=== PATIENT | female | born 1990 | race Hispanic/Latino ===

== ENCOUNTER 2020-06-20 17:29 | Emergency (ER) | payer OTHER ==
[~2020-06-20] VITALS: Ht 157.5 cm; Wt 59.0 kg
[~2020-06-20 17:29] MED LIST: FLAGYL500 MG PO; KEFLEX500 MG PO; METROGEL VAG0.75 % VA; NO HOME MEDS; ONDANSETRON ODT8 MG PO; PRENATA3 OR; SPRINTEC 2828 DAY PO; TAM75CAP OR
[2020-06-20 19:09] LABS: IMMATURE GRANULOCYTES 0.2 % (0.0-5.0); MEAN CORPUSCULAR HGB CONC 33.7 g/dL CAL (32.0-36.0); NEUT# 7.27 thou/uL (2.00-7.15); RED BLOOD COUNT 4.53 mill/uL (4.20-5.60); RED CELL DISTRI WIDTH 13.3 % (11.5-15.5)
[2020-06-20 19:12] LABS: HEMATOCRIT 40.3 % (37.0-47.0); HEMOGLOBIN 13.6 g/dl (12.0-16.0)
[2020-06-20 19:29] LABS: ALBUMIN 4.9 g/dL (3.2-5.0); ALKALINE PHOSPHATASE 54 u/l (38-126); ANION GAP 14 (6-22 (CALC)); BILIRUBIN, TOTAL 1.1 mg/dL (0.0-1.4); BUN 8 mg/dL (7-17); BUN/CREATININE RATIO 13 (12-20 (CALC)); CARBON DIOXIDE 25 mmol/l (22-30); CHLORIDE 100 mmol/l (95-108); CREATININE 0.6 mg/dL (0.5-1.0); GFR > 60 ML/MIN (>=60 (CALC)); GFR FOR AFR.AMER. > 60 ML/MIN (>=60 (CALC)); LIPASE 44 u/l (23-300); POTASSIUM 3.8 mmol/l (3.5-5.1); SGOT/AST 27 u/l (14-36); SODIUM 136 mmol/l (137-146); TOTAL PROTEIN 8.3 g/dL (6.3-8.2)
[2020-06-20] MEDS ORDERED: PHENERGAN25 MG/TAB PO (20:05)
[2020-06-20 20:20] VITALS: BP 128/83
== END 2020-06-20 20:20 | disposition home or self-care (01) ==
LOC: ED 17:29
PROVIDERS: Family Medicine
DX: O21.9 Vomiting of pregnancy, unspecified (principal); Z3A.00 Weeks of gestation of pregnancy not specified; Z20.822 Contact with and (suspected) exposure to COVID-19

== ENCOUNTER 2020-07-10 17:12 | Emergency (ER) | payer OTHER ==
[~2020-07-10] VITALS: Ht 157.5 cm; Wt 60.0 kg
[~2020-07-10 17:12] MED LIST changes: +PHENERGAN25 MG/TAB PO
[2020-07-10 18:40] LABS: HEMATOCRIT 34.2 % (37.0-47.0); HEMOGLOBIN 11.8 g/dl (12.0-16.0); IMMATURE GRANULOCYTES 0.3 % (0.0-5.0); MEAN CELL VOLUME 87.7 fL CALC (80.0-100.0); MEAN CORPUSCULAR HGB 30.3 pG CALC (26.0-32.0); MEAN CORPUSCULAR HGB CONC 34.5 g/dL CAL (32.0-36.0); NEUT# 8.93 thou/uL (2.00-7.15); RED BLOOD COUNT 3.9 mill/uL (4.20-5.60); RED CELL DISTRI WIDTH 13.1 % (11.5-15.5)
[2020-07-10 18:41] LABS: URINE BILIRUBIN - DIPSTICK NEGATIVE (NEGATIVE); URINE BLOOD DIPSTICK NEGATIVE (NEGATIVE); URINE COLOR YELLOW; URINE GLUCOSE - DIPSTICK NEGATIVE (NEGATIVE); URINE KETONE NEGATIVE (NEGATIVE); URINE LEUK ESTERASE NEGATIVE (NEGATIVE); URINE NITRITE - DIPSTICK NEGATIVE (Negative); URINE PH 6.5 (4.5-8.0); URINE PROTEIN - DIPSTICK NEGATIVE (NEG-TRACE); URINE SPECIFIC GRAVITY 1.025; URINE UROBILINOGEN - DIPSTICK 0.2 E.U./dL (0.2)
[2020-07-10 18:58] LABS: ALBUMIN 4.3 g/dL (3.2-5.0); ALKALINE PHOSPHATASE 49 u/l (38-126); ANION GAP 13 (6-22 (CALC)); BUN 8 mg/dL (7-17); BUN/CREATININE RATIO 15 (12-20 (CALC)); CARBON DIOXIDE 26 mmol/l (22-30); CHLORIDE 100 mmol/l (95-108); CREATININE 0.5 mg/dL (0.5-1.0); GFR > 60 ML/MIN (>=60 (CALC)); GFR FOR AFR.AMER. > 60 ML/MIN (>=60 (CALC)); LIPASE 54 u/l (23-300); POTASSIUM 3.5 mmol/l (3.5-5.1); SGOT/AST 21 u/l (14-36); SODIUM 135 mmol/l (137-146); TOTAL PROTEIN 7.4 g/dL (6.3-8.2)
[2020-07-10 19:02] LABS: BILIRUBIN, TOTAL 0.4 mg/dL (0.0-1.4)
[2020-07-10 19:39] LABS: BETA-HCG, QUANT(RESULT NUMBER) 138170 mIU/mL
[2020-07-10] MEDS ORDERED: DICLEGIS1 TAB PO ×2 (19:48→19:51)
[2020-07-10] MEDS ORDERED: CLOTRIMAZOLE VA (19:51)
[2020-07-10 20:16] VITALS: BP 128/83
[2020-07-13] MEDS ORDERED: COMPAZINE10 MG PO (17:05)
== END 2020-07-10 20:16 | disposition home or self-care (01) ==
LOC: ED 17:12
PROVIDERS: Family Medicine
DX: O26.899 Other specified pregnancy related conditions, unspecified trimester (principal); R11.2 Nausea with vomiting, unspecified; N89.8 Other specified noninflammatory disorders of vagina; O99.330 Smoking (tobacco) complicating pregnancy, unspecified trimester; F17.200 Nicotine dependence, unspecified, uncomplicated; Z3A.00 Weeks of gestation of pregnancy not specified

== ENCOUNTER 2020-07-12 19:50 | Emergency (ER) | payer OTHER ==
[~2020-07-12] VITALS: Ht 157.5 cm; Wt 59.0 kg
[~2020-07-12 19:50] MED LIST changes: +CLOTRIMAZOLE VA; +DICLEGIS1 TAB PO
[2020-07-12 21:25] LABS: HEMATOCRIT 37.1 % (37.0-47.0); HEMOGLOBIN 12.7 g/dl (12.0-16.0); IMMATURE GRANULOCYTES 0.5 % (0.0-5.0); MEAN CELL VOLUME 86.9 fL CALC (80.0-100.0); MEAN CORPUSCULAR HGB 29.7 pG CALC (26.0-32.0); MEAN CORPUSCULAR HGB CONC 34.2 g/dL CAL (32.0-36.0); NEUT# 16.93 thou/uL (2.00-7.15); RED BLOOD COUNT 4.27 mill/uL (4.20-5.60); RED CELL DISTRI WIDTH 13.1 % (11.5-15.5)
[2020-07-12 21:29] LABS: URINE BLOOD DIPSTICK NEGATIVE (NEGATIVE); URINE COLOR YELLOW; URINE GLUCOSE - DIPSTICK NEGATIVE (NEGATIVE); URINE KETONE >=80 mg/dL (NEGATIVE); URINE LEUK ESTERASE NEGATIVE (NEGATIVE); URINE NITRITE - DIPSTICK NEGATIVE (Negative); URINE PROTEIN - DIPSTICK 30 mg/dL (NEG-TRACE); URINE SPECIFIC GRAVITY >=1.030; URINE UROBILINOGEN - DIPSTICK 0.2 E.U./dL (0.2)
[2020-07-12 21:33] LABS: URINE BILIRUBIN - DIPSTICK NEGATIVE (NEGATIVE)
[2020-07-12 21:38] LABS: ALBUMIN 4.4 g/dL (3.2-5.0); ALKALINE PHOSPHATASE 57 u/l (38-126); AMYLASE 96 u/l (30-110); ANION GAP 15 (6-22 (CALC)); BUN 8 mg/dL (7-17); BUN/CREATININE RATIO 17 (12-20 (CALC)); CARBON DIOXIDE 22 mmol/l (22-30); CHLORIDE 103 mmol/l (95-108); CREATININE 0.5 mg/dL (0.5-1.0); GFR > 60 ML/MIN (>=60 (CALC)); GFR FOR AFR.AMER. > 60 ML/MIN (>=60 (CALC)); LIPASE 60 u/l (23-300); POTASSIUM 3.7 mmol/l (3.5-5.1); SODIUM 136 mmol/l (137-146); TOTAL PROTEIN 7.4 g/dL (6.3-8.2)
[2020-07-12 21:39] LABS: BILIRUBIN, TOTAL 0.6 mg/dL (0.0-1.4); SGOT/AST 37 u/l (14-36)
[2020-07-12 21:41] LABS: URINE RBC 0-2 RBC/hpf (0-5); URINE SQUAMOUS EPITHELIAL CELL MODERATE EPI/hpf (0-FEW)
[2020-07-12 22:08] VITALS: BP 100/56
[2020-07-12] MEDS ORDERED: COMPAZINE10 MG PO (22:20)
[2020-07-13] MEDS ORDERED: COMPAZINE10 MG PO (17:05)
== END 2020-07-12 22:43 | disposition home or self-care (01) ==
LOC: ED 19:50
PROVIDERS: Family Medicine
DX: O21.9 Vomiting of pregnancy, unspecified (principal); T50.906A Underdosing of unspecified drugs, medicaments and biological substances, initial encounter; Z91.128 Patient's intentional underdosing of medication regimen for other reason; Z3A.00 Weeks of gestation of pregnancy not specified

== ENCOUNTER 2020-11-02 10:50 | Emergency (ER) | payer OTHER ==
[~2020-11-02] VITALS: Ht 157.5 cm; Wt 68.0 kg
[~2020-11-02 10:50] MED LIST changes: +COMPAZINE10 MG PO; +DIFLUCAN150 MG PO
[2020-11-02 11:54] VITALS: BP 118/75
[2020-11-02] MEDS ORDERED: CLARITIN10 M2 PO (11:55)
[2020-11-02] MEDS ORDERED: AMOXICILLIN500 MG PO (11:55)
== END 2020-11-02 12:00 | disposition home or self-care (01) ==
LOC: ED 10:50
DX: O99.512 Diseases of the respiratory system complicating pregnancy, second trimester (principal); J02.9 Acute pharyngitis, unspecified; Z3A.24 24 weeks gestation of pregnancy; Z20.822 Contact with and (suspected) exposure to COVID-19

== ENCOUNTER 2021-01-23 21:10 | Emergency (ER) | payer OTHER ==
[~2021-01-23] VITALS: Ht 157.5 cm; Wt 79.0 kg
[~2021-01-23 21:10] MED LIST changes: +AMOXICILLIN500 MG PO; +CLARITIN10 M2 PO
[2021-01-23 22:15] VITALS: BP 112/69
== END 2021-01-24 00:40 | disposition home or self-care (01) ==
LOC: ED 21:10
DX: Z20.822 Contact with and (suspected) exposure to COVID-19 (principal)

== ENCOUNTER 2024-05-08 21:15 | Emergency (ER) | payer OTHER ==
[~2024-05-08] VITALS: Ht 157.5 cm; Wt 60.0 kg
[2024-05-08] VITALS (7 sets, daily range): BP systolic 103–134; BP diastolic 61–85
[2024-05-08] MEDS ORDERED: IBUPROFEN 200 MG/TAB PO ONE (21:40)
[2024-05-08] MEDS ORDERED: Diph, Acellular Pertussis, Tet 0.5 ML/VIAL (Tdap) SDV IM ONE (21:40)
[2024-05-08] MEDS ORDERED: ACETAMINOPHEN 500 MG TAB PO ONE (21:40)
== END 2024-05-08 22:48 | disposition home or self-care (01) | DRG 605 ==
LOC: ED 21:15
DX: S91.331A Puncture wound without foreign body, right foot, initial encounter (principal); W45.0XXA Nail entering through skin, initial encounter; Y92.89 Other specified places as the place of occurrence of the external cause; Y99.0 Civilian activity done for income or pay

== ENCOUNTER 2024-07-01 19:36 | Emergency (ER) | payer OTHER ==
[~2024-07-01] VITALS: Ht 157.5 cm; Wt 59.0 kg
[2024-07-01] MEDS ORDERED: ACETAMINOPHEN 500 MG TAB PO ONE (21:35)
[2024-07-01] MEDS ORDERED: SODIUM CHLORIDE 0.9% 1,000 ML IV ONE (21:35)
[2024-07-01] MEDS ORDERED: KETOROLAC TROMETHAMINE 30 MG/ML SDV IV ONE (21:35)
[2024-07-01 21:53] LABS: BASO% 0.3 % (0-3); HEMATOCRIT 36.9 % (37.0-47.0); HEMOGLOBIN 11.6 g/dl (12.0-16.0); IMMATURE GRANULOCYTES 0.2 % (0.0-5.0); MEAN CELL VOLUME 83.1 fL CALC (80.0-100.0); MEAN CORPUSCULAR HGB 26.1 pG CALC (26.0-32.0); MEAN CORPUSCULAR HGB CONC 31.4 g/dL CAL (32.0-36.0); MONO% 7.5 % (2-13); NEUT# 9.73 thou/uL (2.00-7.15); RED BLOOD COUNT 4.44 mill/uL (4.20-5.60); RED CELL DISTRI WIDTH 15.4 % (11.5-15.5)
[2024-07-01 22:09] LABS: ALBUMIN 4.4 g/dL (3.2-5.0); CREATININE 0.8 mg/dL (0.5-1.0); POTASSIUM 3.3 mmol/l (3.5-5.1); TOTAL PROTEIN 7.3 g/dL (6.3-8.2)
[2024-07-01 22:10] LABS: BILIRUBIN, TOTAL 1.1 mg/dL (0.02-1.3)
[2024-07-01 23:56] VITALS: BP 131/87
== END 2024-07-01 23:56 | disposition home or self-care (01) | DRG 605 ==
LOC: ED 19:36
PROVIDERS: Family Medicine
DX: S00.83XA Contusion of other part of head, initial encounter (principal); S70.02XA Contusion of left hip, initial encounter; S80.12XA Contusion of left lower leg, initial encounter; S80.11XA Contusion of right lower leg, initial encounter; S20.212A Contusion of left front wall of thorax, initial encounter; Y04.2XXA Assault by strike against or bumped into by another person, initial encounter; F17.200 Nicotine dependence, unspecified, uncomplicated

== ENCOUNTER 2024-07-09 01:00 | Emergency (ER) | payer OTHER ==
[~2024-07-09] VITALS: Ht 157.5 cm; Wt 63.0 kg
[2024-07-09] MEDS ORDERED: AZITHROMYCIN 250 MG/TAB PO ONE (01:35)
[2024-07-09] MEDS ORDERED: LIDOCAINE VISCOUS 2% 15 ML UDC PO ONE (01:35)
[2024-07-09] MEDS ORDERED: LIDOCAINE21 MT (01:49)
[2024-07-09] MEDS ORDERED: AZITHROMYCIN500 MG PO (01:49)
[2024-07-09 02:30] VITALS: BP 125/80
== END 2024-07-09 02:35 | disposition home or self-care (01) | DRG 153 ==
LOC: ED 01:00
DX: J02.9 Acute pharyngitis, unspecified (principal); F17.210 Nicotine dependence, cigarettes, uncomplicated

== ENCOUNTER 2024-07-12 08:49 | Emergency (ER) | payer OTHER ==
[~2024-07-12] VITALS: Ht 157.5 cm; Wt 58.0 kg
[~2024-07-12 08:49] MED LIST changes: +AZITHROMYCIN500 MG PO; +LIDOCAINE21 MT
[2024-07-12 08:58] VITALS: BP 124/89
[2024-07-12 09:01] VITALS: BP 121/92
[2024-07-12 09:14] LABS: BASO% 0.2 % (0-3); EOS% 0.6 % (0-8); HEMATOCRIT 33.4 % (37.0-47.0); IMMATURE GRANULOCYTES 0.2 % (0.0-5.0); LYMPH% 14.2 % (15-41); MEAN CELL VOLUME 86.3 fL CALC (80.0-100.0); MEAN CORPUSCULAR HGB 25.8 pG CALC (26.0-32.0); MEAN CORPUSCULAR HGB CONC 29.9 g/dL CAL (32.0-36.0); NEUT% 80.8 % (42-76); RED BLOOD COUNT 3.87 mill/uL (4.20-5.60); RED CELL DISTRI WIDTH 15.7 % (11.5-15.5)
[2024-07-12 09:30] VITALS: BP 118/82
[2024-07-12 09:35] LABS: BILIRUBIN, TOTAL 0.7 mg/dL (0.02-1.3); CREATININE 0.8 mg/dL (0.5-1.0); TOTAL PROTEIN 7.2 g/dL (6.3-8.2)
[2024-07-12 09:42] LABS: POTASSIUM 4.2 mmol/l (3.5-5.1)
[2024-07-12 10:49] VITALS: BP 128/80
[2024-07-12] MEDS ORDERED: cefTRIAXone SODIUM 2 GM in SODIUM CHLORIDE 0.9% 100 ML IV ONE (11:05)
[2024-07-12] MEDS ORDERED: AMOCLAN400 MG/5 M PO (12:11)
[2024-07-12 12:29] VITALS: BP 128/80
== END 2024-07-12 12:31 | disposition home or self-care (01) | DRG 153 ==
LOC: ED 08:49
PROVIDERS: Family Medicine
DX: J36 Peritonsillar abscess (principal); F17.200 Nicotine dependence, unspecified, uncomplicated; Z20.822 Contact with and (suspected) exposure to COVID-19
CPT/HCPCS: J0696; Q9967